=== PATIENT | male | born 1950 | race Caucasian/White ===

== ENCOUNTER 2019-05-29 09:28 | Inpatient (IN) | payer OTHER ==
[~2019-05-29] VITALS: Ht 177.8 cm; Wt 64.1 kg
[~2019-05-29 09:28] MED LIST: NEXIUM40 MG PO; OXYCONTIN80 MG PO; PERCOCET 5/321 UDTAB PO; TRIAMTERENE PO
[2019-06-21] VITALS (10 sets, daily range): BP systolic 129–178; BP diastolic 69–91; PULSE 68–89; TEMP 97.5–98.7
[2019-06-21 06:12] LABS: HEMOGLOBIN 13.6 g/dl (13.5-18.0); MEAN CELL VOLUME 95 fl (80.0-100.0); MEAN CORPUSCULAR HEMOGLOBIN 33 pg (27.0-31.0); MEAN CORPUSCULAR HGB CONC 35 g/dl (33.0-37.0); MEAN PLATELET VOLUME 8.8 fl (7.4-10.4); PLATELET COUNT 195 K/mm3 (130-400); REDCELL DISTRIBUTION WIDTH-CV 13.5 % (11.5-14.5)
[2019-06-21 06:23] LABS: CALCIUM 8.6 mg/dL (8.4-10.2); CREATININE, serum 0.83 (0.66-1.25); POTASSIUM 3.9 mmol/L (3.4-5.0)
[2019-06-21] MEDS ORDERED: COMBIRESP IH (06:29)
[2019-06-21] MEDS ORDERED: ASPIRIN 81M81 MG/TA2 PO (06:30)
[2019-06-21] MEDS ORDERED: ELAVIL100 MG PO (06:30)
[2019-06-21] MEDS ORDERED: MUCUS RELIEF400 M1 PO (06:31)
[2019-06-21] MEDS ORDERED: SYNTHROID0.05 MG/TA PO (06:31)
[2019-06-21] MEDS ORDERED: VITAMIN D 1001000 IU PO (06:31)
[2019-06-21] MEDS ORDERED: PRINIVIL5 MG PO (06:32)
[2019-06-21] MEDS ORDERED: MSIR30 MG PO ×3 (06:33→06:35)
[2019-06-21] MEDS ORDERED: PRILOSEC 20MG20 MG PO (06:37)
[2019-06-21] MEDS ORDERED: ENSURE 237 ML237 ML PO (06:37)
[2019-06-21] MEDS ORDERED: ZOCOR 40MG40 MG PO (06:38)
--- NOTE | 2019-06-21 12:17 | NUR ---
Telephone report recieved from DESMOND Bullard in recovery.
--- NOTE | 2019-06-21 12:20 | NUR ---
Pt arrived on bed to Surg 22-2 with DESMOND Bullard. Cher attached and sequential Vitals set. Pt AAOx4 slightly drowsy, pt complaining of "stabbing soreness in abdomen".
--- NOTE | 2019-06-21 13:23 | NUR ---
EWELINA Ceballos notified of different Oral morphine ordered medication than reny history from pharmacy
--- NOTE | 2019-06-21 13:26 | NUR ---
Pt tolerating PO without N/V
[2019-06-21] MEDS ORDERED: MS CONTIN 330 MG/TAB PO ×3 (13:58→14:11)
--- NOTE | 2019-06-21 14:30 | NUR ---
Pt in recliner. Full weight tolerated, stand by assistance without difficulty or pain. Call light in reach
--- NOTE | 2019-06-21 16:38 | NUR ---
MD Sukhjinder in to see pt
--- NOTE | 2019-06-21 20:00 | NUR ---
Report received. Assumed care for night shift manager. Assessment complete. VS stable. Up in chair talking on phone with spouse. Denies pain/nausea/shortness of breath. Slightly confused on time of day. Thinks its morning and he slept all night in chair. Reoriented to time and states "I must have slept all day." Plan of care discussed for this shift to include HS meds/pain meds. Verbalizes understanding and denies concerns. Call light in reach. Will monitor.
--- NOTE | 2019-06-21 20:40 | NUR ---
Ambulated in hallway with stand by assistx1/gait belt. Ambulated approx 500 feet without difficulty. Assisted back to bed. Denies pain. Bender cath with clear yellow urine. Denies pain/shortness of breath. Will continue to monitor.
[2019-06-22] VITALS (7 sets, daily range): BP systolic 118–155; BP diastolic 62–83; PULSE 72–80; TEMP 97.9–98.6
--- NOTE | 2019-06-22 06:05 | NUR ---
Bender cath DCd at this time. IV to INT-tolerating PO. Denies pain/nausea/shortness of breath. Call light in reach. Will monitor.
--- NOTE | 2019-06-22 08:02 | NUR ---
Patient up ambulating in room. Alert and oriented x3. Steady gait. Denies pain at his time. Encouraged patient to increase fluid intake, alanis out this AM, has not voided yet. Lap sites and midline with edges well approximated. Patient states he has not started passing gas yet. Encouraged ambulation. Denies further needs at this time.
[2019-06-22 08:03] LABS: HEMATOCRIT 38.3 % (42.0-52.0); MEAN CELL VOLUME 99 fl (80.0-100.0); MEAN CORPUSCULAR HEMOGLOBIN 33 pg (27.0-31.0); MEAN CORPUSCULAR HGB CONC 34 g/dl (33.0-37.0); MEAN PLATELET VOLUME 9.3 fl (7.4-10.4); PLATELET COUNT 210 K/mm3 (130-400); RED BLOOD COUNT 3.89 M/mm3 (4.20-5.60); REDCELL DISTRIBUTION WIDTH-CV 13.8 % (11.5-14.5)
[2019-06-22 08:14] LABS: CALCIUM 8.5 mg/dL (8.4-10.2); CREATININE, serum 1.47 (0.66-1.25); POTASSIUM 4.4 mmol/L (3.4-5.0)
[2019-06-22 08:26] LABS: BAND 14 % (0-10); LYMPHOCYTE 3 % (20.0-51.0); NEUTROPHILS 81 % (42.0-75.2); PLATELET ESTIMATE NORMAL (NORMAL)
--- NOTE | 2019-06-22 10:46 | NUR ---
KATIE met with the patient to discuss discharge plan. The patient lives in [place] with his , Maggi (ph#[phone]). He reports independence with ADLs and has walkers and crutches available to him if needed. The patient's PCP is Dr. Mago Simeon at [facility] in [place] and he also receives his medications from there. He reports no difficulties obtaining his meds. The patient does not have advanced directives completed, but he was interested in obtaining a form for DPOA-HC. KATIE provided. The patient plans to return home with his upon discharge. No additional needs at this time.
--- NOTE | 2019-06-22 16:10 | NUR ---
REFUSED, WANTS TO SLEEP
--- NOTE | 2019-06-22 19:58 | NUR ---
PT IS ALERT, OX3, COOPERATIVE, APPROPRIATE. PT REPORTS PAIN TO ABDOMEN, CURRENTLY RATES AT 8/10; SCHEDULED MS CONTIN PROVIDED AT THIS TIME. PT ALSO REPORTS CHRONIC BACK PAIN, RATES AT 8/10. PT DENIES URINARY ISSUES AT THIS TIME, STATES URINE HAS BEEN YELLOW IN COLOR. NO BM TODAY. PT IS INDEPENDENT WITH ACTIVITY. CALL LIGHT WITHIN REACH.
[2019-06-23 03:36] VITALS: BP 153/83; PULSE 76; TEMP 97.8
--- NOTE | 2019-06-23 06:37 | NUR ---
PT REPORTS SLEEPING GOOD THROUGH THE NIGHT. STATES HE WAS UP TO BR TO VOID TWICE DURING THE NIGHT WITHOUT ANY DIFFICULTIES. PT IS CURRENTLY REPORTING INCREASED PAIN TO UPPER ABDOMEN, RATES AT 10/10; PT GIVEN HIS SCHEDULED TYLENOL AND PRN DOSE OF ULTRAM AT THIS TIME. PT DENIES OTHER NEEDS, CALL LIGHT WITHIN REACH.
[2019-06-23 07:09] LABS: BASO % 0.1 % (0.0-2.0); EOS # 0.1 (0.0-0.7); EOS % 0.6 % (0-4.0); GRAN # 7.8 (1.4-6.5); GRAN % 82.9 % (42.2-75.2); HEMATOCRIT 37.5 % (42.0-52.0); HEMOGLOBIN 12.7 g/dl (13.5-18.0); LYMPH # 1.1 (1.2-3.4); LYMPH % 11.8 % (20.0-51.0); MEAN CELL VOLUME 98 fl (80.0-100.0); MEAN CORPUSCULAR HEMOGLOBIN 33 pg (27.0-31.0); MEAN CORPUSCULAR HGB CONC 34 g/dl (33.0-37.0); MEAN PLATELET VOLUME 9.5 fl (7.4-10.4); MONO # 0.4 (0.1-0.6); MONO % 4.2 % (1.7-9.3); PLATELET COUNT 194 K/mm3 (130-400); RED BLOOD COUNT 3.81 M/mm3 (4.20-5.60); REDCELL DISTRIBUTION WIDTH-CV 14.1 % (11.5-14.5)
[2019-06-23 07:19] LABS: CALCIUM 8.3 mg/dL (8.4-10.2); CREATININE, serum 1.49 (0.66-1.25); POTASSIUM 4.3 mmol/L (3.4-5.0)
--- NOTE | 2019-06-23 08:21 | NUR ---
RA SPO2 85% 2 LPM NC 91%
--- NOTE | 2019-06-23 08:47 | NUR ---
Contacted Michelle THEODORE, notified by RT that O2 sats at 85, order for exercise oxymetry entered.
--- NOTE | 2019-06-23 08:48 | NUR ---
Patient in bed resting. Alert and oriented x 3. Shift assessment complete. Abdominal incision with edges well approximated. States pain from chronic back pain. Denies further needs at this time.
[2019-06-23] MEDS ORDERED: NORVASC 5MG5 MG/TAB PO (09:01)
[2019-06-23 09:37] VITALS: BP 144/85; PULSE 76; TEMP 97.5
[2019-06-23 12:04] VITALS: BP 138/82; PULSE 77; TEMP 97.8
--- NOTE | 2019-06-23 12:20 | NUR ---
Contacted patients spouse Maggi, to update on patient status and discharge plan per patient request.
--- NOTE | 2019-06-23 16:34 | NUR ---
The patient qualified for four liters of continuous oxygen. The patient's insurance is [employer]. KATIE met with the patient to present and explain the Patient Choice Form for DME and explained how other DME companies are not able to bill the [facility] and how the [facility] would have to supply the oxygen. The patient verbalized understanding and was in agreeance to this. Patient Choice Form signed by the patient and he was provided a copy. KATIE contacted and faxed the patient's oxygen order to [facility] with [facility]. Abe forwarded the oxygen order to their DME provider, Tab. Tab contacted KATIE to inform that they are able to provide the patient with oxygen and that they will deliver a portable tank to the patient's room early this evening. KATIE informed the patient and the patient's RN of this. The patient is to discharge back home with his today, 06/23. No additional needs at this time.
--- NOTE | 2019-06-23 18:20 | NUR ---
Contacted KATIE Green attempting to set up home oxygen today, unable to do so until this afternoon, oxygen being brought from [place] in [place]. Per spouse oxygen home will be set up today and she was told to stay home until they arrived to set up oxygen. Spouse unable to pick patient up today for discharge. Notified Dr. Slaughter that patient stay over night to be dischaged in AM.
--- NOTE | 2019-06-23 18:51 | NUR ---
Patient has done well throughout the day. Minimal needs. Independent in room. Denies further needs at this time. Will report off to night manager.
[2019-06-23 20:00] VITALS: BP 133/90; PULSE 97; TEMP 98.2
--- NOTE | 2019-06-23 20:50 | NUR ---
Report received. 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 A&Ox3 Assessment complete. VS stable. Denies shortness of breath/nausea. Rating pain 8/10 to right side abdomen/back described as burning/ache. Scheduled MS contin given. Lap sitesx3 and midline incision-edges well approximated with no drainage noted. Has ambulated and is belching but denies pass much gas. Denies needs/questions or concerns. Call light in reach and encouraged to call for questions/concerns. Will monitor.
[2019-06-23 23:36] VITALS: BP 122/68; PULSE 66; TEMP 97.7
--- NOTE | 2019-06-24 | NUR ---
Refused 0000 dose of tylenol stating "I dont want it just want to sleep."
[2019-06-24 04:00] VITALS: BP 148/82; PULSE 77; TEMP 97.9
--- NOTE | 2019-06-24 08:00 | NUR ---
Patient in bed resting. ALert and oriented x 3. Shift assessment complete. Incisions with edges well approximated. Denies further needs at this time.
[2019-06-24 08:32] VITALS: BP 161/84; PULSE 80; TEMP 98.7
--- NOTE | 2019-06-24 13:00 | NUR ---
Discharge education provided to patient and spouse. Educated on use of home oxygen. Educated on signs and symptoms of infection and when to call provider. All questions answered. Denies further needs at this time. Patient out by wheelchair with spouse and staff.
== END 2019-06-24 13:00 | disposition home or self-care (01) | DRG 657 ==
LOC: INPTSU 06-21 05:16 → SURG 06-21 07:45
PROVIDERS: Nurse Anesthetist, Certified Registered; Physician Assistant; ADMIT Urology
PROC: 0TT00ZZ Resection of Right Kidney, Open Approach (ICD-10-PCS; principal; 2019-06-21 07:45)
DX: C64.1 Malignant neoplasm of right kidney, except renal pelvis (principal); K56.7 Ileus, unspecified; G89.29 Other chronic pain; M54.9 Dorsalgia, unspecified; R09.02 Hypoxemia; D72.829 Elevated white blood cell count, unspecified; I10 Essential (primary) hypertension; E78.5 Hyperlipidemia, unspecified; J44.9 Chronic obstructive pulmonary disease, unspecified; E03.9 Hypothyroidism, unspecified; K21.9 Gastro-esophageal reflux disease without esophagitis; F17.210 Nicotine dependence, cigarettes, uncomplicated; Z79.82 Long term (current) use of aspirin
CPT/HCPCS: 99222; 99231-AI; 99232-AI; A4314; A9284; J0690; J1100; J1170; J2250; J2270; J2405; J2704; J3010; J7120